=== PATIENT | female | born 1965 | race Caucasian/White ===

== ENCOUNTER → 2016-11-04 | Outpatient (CLI) | payer MEDICARE, MEDICAID ==
[~2016-11-04] MED LIST: CRAN500C2 PO; DITR1TAB PO; KURV0.15 PO; RAMI5CA PO; VITA500C10 PO; ZOCO20TA PO
== END ==
LOC: M LAB 11-01 17:02 → M LAB REF 10:35
PROVIDERS: ATTEND Nurse Practitioner Family
DX: N76.0 Acute vaginitis (principal); Z53.9 Procedure and treatment not carried out, unspecified reason

== ENCOUNTER → 2016-11-06 | Outpatient (REF) | payer MEDICARE, MEDICAID | LOC: M SFHCLERA 13:42 | PROVIDERS: ATTEND Nurse Practitioner Family | DX: N30.01 Acute cystitis with hematuria (principal) | CPT/HCPCS: 81002; 87086; G0463 ==

== ENCOUNTER → 2016-11-18 | Outpatient (REF) | payer MEDICARE, MEDICAID ==
[2016-11-18 18:54] LABS: CALCIUM OXALATE CRYSTALS SMALL
== END ==
LOC: M SMT 17:01 → M LAB REF 17:01
PROVIDERS: ATTEND Nurse Practitioner Women's Health
DX: N39.0 Urinary tract infection, site not specified (principal)
CPT/HCPCS: 51798; 81001; 87086; G0463

== ENCOUNTER → 2016-11-22 | Outpatient (CLI) | payer MEDICARE, MEDICAID ==
--- NOTE | 2016-11-22 13:58 | REP ---
RENAL AND BLADDER ULTRASOUND: Real-time sonographic evaluation of the kidneys and bladder are performed. The kidneys are normal in size and echotexture, right kidney measuring 10.5 x 5.8 x 4.7 cm and the left kidney 10.4 x 4.9 x 4.3 cm. There is no hydronephrosis bilaterally. No mass or calculus is visualized. The urinary bladder is mildly distended measuring 5.3 x 8.0 x 5.4 cm for a total volume of 120 mL. No bladder mass or calculus is seen. Bilateral ureteral jets are seen in the urinary bladder with Doppler color evaluation. There is mild postvoid residual of 19 mL following voiding. IMPRESSION: Essentially negative renal and bladder ultrasound. Signed by Blaze Ahn MD 11/22/2016 04:08 P
== END ==
LOC: M SMT 11:13
PROVIDERS: ATTEND Nurse Practitioner Women's Health
DX: N39.0 Urinary tract infection, site not specified (principal); R32 Unspecified urinary incontinence

== ENCOUNTER → 2016-12-02 | Outpatient (REF) | payer MEDICARE, MEDICAID | LOC: M SMT 18:33 | PROVIDERS: ATTEND Nurse Practitioner Women's Health | DX: N30.01 Acute cystitis with hematuria (principal) | CPT/HCPCS: 81001; 87086; G0463 ==

== ENCOUNTER 2017-01-21 10:50 | Day surgery (SDC) | payer MEDICARE, MEDICAID ==
[~2017-01-21] VITALS: Ht 152.4 cm; Wt 78.9 kg
[2017-01-21] MEDS ORDERED: NS 1,000 ML IV ONE (11:15)
[2017-01-21] MEDS ORDERED: PROPOFOL 200 MG/20 ML VIAL As Ordered ONE (12:25)
[2017-01-21] MEDS ORDERED: LIDOCAINE 2% INJ 100 MG/5 ML SDV (FOR ANES.) As Ordered ONE (12:26)
--- NOTE | 2017-01-21 12:39 | ROOR ---
Patient Name: Hermila Amor Procedure Date: 01/21/2017 12:05 PM Date of : 1965 Age: 51 Room: [facility] Gender: Female Note Status: Finalized Procedure: Total Colonoscopy to the Cecum + Cold Snare Polypectomy Indications: Screening for colorectal malignant neoplasm Providers: Ever Mcduffie MD Referring MD: STEVEN ROBLES MD Requesting Provider: Medicines: Monitored Anesthesia Care Complications: No immediate complications. Procedure: Pre-Anesthesia Assessment: - The heart rate, respiratory rate, oxygen saturations, blood pressure, adequacy of pulmonary ventilation, and response to care were monitored throughout the procedure. The Colonoscope was introduced through the anus and advanced to the cecum, identified by appendiceal orifice and ileocecal valve. The colonoscopy was performed without difficulty. The patient tolerated the procedure well. The quality of the bowel preparation was good. Findings: The perianal and digital rectal examinations were normal. Non-bleeding internal hemorrhoids were found during retroflexion. The hemorrhoids were small and Grade I (internal hemorrhoids that do not prolapse). Multiple small and large-mouthed diverticula were found in the recto-sigmoid colon, sigmoid colon and descending colon. A small polyp was found at 45 cm proximal to the anus. The polyp was sessile. The polyp was removed with a cold snare. Resection and retrieval were complete. A small polyp was found in the transverse colon. The polyp was sessile. The polyp was removed with a cold snare. Resection and retrieval were complete. The exam was otherwise without abnormality on direct and retroflexion views. Impression: - Non-bleeding internal hemorrhoids. - Diverticulosis in the recto-sigmoid colon, in the sigmoid colon and in the descending colon. - One small polyp at 45 cm proximal to the anus, removed with a cold snare. Resected and retrieved. - One small polyp in the transverse colon, removed with a cold snare. Resected and retrieved. - The examination was otherwise normal on direct and retroflexion views. - The exam was otherwise normal to the cecum. Recommendation: - Patient has a contact number available for emergencies. The signs and symptoms of potential delayed complications were discussed with the patient. Return to normal activities tomorrow. Written discharge instructions were provided to the patient. - High fiber diet. - Discharge patient to home. - Continue present medications. - Await pathology results. - Telephone GI clinic for pathology results in 1 week. - Check Portal Online for Path Results.([email or web address]) Ever Mcduffie MD Ever Mcduffie MD 01/21/2017 12:38:54 PM This report has been signed electronically. Number of Addenda: 0 Note Initiated On: 01/21/2017 12:05 PM Estimated Blood Loss: Estimated blood loss: none.
[2017-01-21 12:50] VITALS: BP 147/98
== END 2017-01-21 13:14 | disposition home or self-care (01) ==
LOC: M OPP 10:50
PROVIDERS: ATTEND Internal Medicine Gastroenterology
DX: Z12.11 Encounter for screening for malignant neoplasm of colon (principal); K64.0 First degree hemorrhoids; K57.30 Diverticulosis of large intestine without perforation or abscess without bleeding; D12.5 Benign neoplasm of sigmoid colon; D12.3 Benign neoplasm of transverse colon; I10 Essential (primary) hypertension; I89.0 Lymphedema, not elsewhere classified; F79 Unspecified intellectual disabilities; E78.00 Pure hypercholesterolemia, unspecified; Z79.899 Other long term (current) drug therapy

== ENCOUNTER → 2017-02-10 | Outpatient (REF) | payer MEDICARE, MEDICAID | LOC: M SMT 17:05 | PROVIDERS: ATTEND Specialist | DX: R35.1 Nocturia (principal) | CPT/HCPCS: 52000; 88108; G0463 ==

== ENCOUNTER → 2017-11-01 | Outpatient (CLI) | payer MEDICARE, MEDICAID | LOC: M RAD 17:05 | DX: Z12.31 Encounter for screening mammogram for malignant neoplasm of breast (principal); N63.11 Unspecified lump in the right breast, upper outer quadrant | CPT/HCPCS: 77067 ==

== ENCOUNTER → 2018-02-07 | Outpatient (REF) | payer MEDICARE, MEDICAID ==
[2018-02-07 21:36] LABS: AMORPHOUS SEDIMENT SMALL (NEGATIVE); APPEARANCE, URINE CLOUDY (CLEAR); BACTERIA, URINE AUTO 2+ (NEGATIVE); BILIRUBIN, URINE AUTO NEGATIVE (NEGATIVE); BLOOD, URINE BLOOD NEGATIVE (NEGATIVE); COLOR, URINE AMBER (YELLOW); GLUCOSE, URINE (UA) AUTO NEGATIVE (NEGATIVE); KETONE, URINE AUTO NEGATIVE (NEGATIVE); LEUKOCYTE ESTERASE, URINE AUTO 2+ (NEGATIVE); MUCUS, URINE SMALL (NEGATIVE); NITRITE, URINE AUTO POSITIVE (NEGATIVE); PROTEIN, URINE AUTO NEGATIVE (NEGATIVE); RBC, URINE AUTO 1 /HPF (0-3); SPECIFIC GRAVITY URINE AUTO 1.023 (1.002-1.035); SQUAMOUS EPITHELIAL CELL UR AU 38 /HPF (0-6); WBC, URINE AUTO 21 /HPF (0-3)
== END ==
LOC: M LAB REF 21:10
DX: N39.0 Urinary tract infection, site not specified (principal)
CPT/HCPCS: 81001

== ENCOUNTER → 2018-02-25 | Outpatient (REF) | payer MEDICARE, MEDICAID ==
[2018-02-25 15:44] LABS: AMORPHOUS SEDIMENT SMALL (NEGATIVE); APPEARANCE, URINE CLOUDY (CLEAR); BACTERIA, URINE AUTO 1+ (NEGATIVE); BILIRUBIN, URINE AUTO NEGATIVE (NEGATIVE); BLOOD, URINE BLOOD NEGATIVE (NEGATIVE); COLOR, URINE YELLOW (YELLOW); GLUCOSE, URINE (UA) AUTO NEGATIVE (NEGATIVE); KETONE, URINE AUTO NEGATIVE (NEGATIVE); LEUKOCYTE ESTERASE, URINE AUTO 2+ (NEGATIVE); MUCUS, URINE SMALL (NEGATIVE); NITRITE, URINE AUTO NEGATIVE (NEGATIVE); PROTEIN, URINE AUTO NEGATIVE (NEGATIVE); RBC, URINE AUTO 8 /HPF (0-3); SPECIFIC GRAVITY URINE AUTO 1.016 (1.002-1.035); SQUAMOUS EPITHELIAL CELL UR AU 21 /HPF (0-6); UROBILINOGEN, URINE AUTO 0.2 mg/dL (0.0-2.0); WBC, URINE AUTO 13 /HPF (0-3)
== END ==
LOC: M LAB REF 10:33
DX: N39.0 Urinary tract infection, site not specified (principal)
CPT/HCPCS: 81001

== ENCOUNTER → 2018-09-04 | Outpatient (REF) | payer MEDICARE, MEDICAID ==
[~2018-09-04] MED LIST changes: +RAMI1CAP24 PO; -RAMI5CA PO
== END ==
LOC: M LAB REF 11:19
PROVIDERS: ATTEND Physician Assistant Medical
DX: N39.0 Urinary tract infection, site not specified (principal)

== ENCOUNTER → 2018-11-27 | Outpatient (REF) | payer MEDICARE, MEDICAID ==
[2018-11-27 13:09] LABS: APPEARANCE, URINE MANUAL HAZY (CLEAR)
[2018-11-27 13:10] LABS: BILIRUBIN, URINE MANUAL NEGATIVE (NEGATIVE); BLOOD URINE MANUAL POSITIVE (NEGATIVE); COLOR, URINE MANUAL YELLOW (YELLOW); GLUCOSE, URINE (UA) MANUAL 1+(100 MG/DL) mg/dL (NEGATIVE); KETONE, URINE MANUAL 1+ mg/dL (NEGATIVE); LEUKOCYTE ESTERASE, URINE MAN POSITIVE (NEGATIVE); NITRITE, URINE MANUAL POSITIVE (NEGATIVE); PROTEIN, URINE MANUAL 2+ mg/dL (NEGATIVE); UROBILINOGEN, URINE MANUAL NORMAL (NORMAL)
[2018-11-27 13:11] LABS: RBC, URINE 20-30 /hpf (0-3); WBC, URINE 20-30 /hpf (0-3)
[2018-11-27 13:12] LABS: BACTERIA, URINE LARGE AMOUNT; SQUAMOUS EPITHELIAL CELL URINE NONE SEEN /hpf (SMALL AMT)
== END ==
LOC: M LAB REF 13:03
PROVIDERS: ATTEND Physician Assistant Medical
DX: N39.0 Urinary tract infection, site not specified (principal)

== ENCOUNTER → 2019-10-27 | Outpatient (REF) | payer MEDICARE, MEDICAID ==
[2019-11-22 14:06] LABS: APPEARANCE, URINE HAZY (CLEAR); BACTERIA, URINE AUTO NEGATIVE (NEGATIVE); BILIRUBIN, URINE AUTO NEGATIVE (NEGATIVE); BLOOD, URINE BLOOD NEGATIVE (NEGATIVE); COLOR, URINE YELLOW (YELLOW); GLUCOSE, URINE (UA) AUTO NEGATIVE (NEGATIVE); KETONE, URINE AUTO NEGATIVE (NEGATIVE); LEUKOCYTE ESTERASE, URINE AUTO 1+ (NEGATIVE); NITRITE, URINE AUTO NEGATIVE (NEGATIVE); PROTEIN, URINE AUTO NEGATIVE (NEGATIVE); RBC, URINE AUTO 4 /HPF (0-3); SPECIFIC GRAVITY URINE AUTO 1.017 (1.002-1.035); SQUAMOUS EPITHELIAL CELL UR AU 8 /HPF (0-6); UROBILINOGEN, URINE AUTO 0.2 mg/dL (0.0-2.0); WBC, URINE AUTO 7 /HPF (0-3)
== END ==
LOC: M LAB REF 07:22
PROVIDERS: ATTEND Physician Assistant Medical
DX: N39.0 Urinary tract infection, site not specified (principal)

== ENCOUNTER → 2019-11-21 | Outpatient (CLI) | payer MEDICARE, MEDICAID ==
--- NOTE | 2019-11-24 12:03 | REPMRS ---
Patient History The patient states she has not had a clinical breast exam in over a year. Patient is nulliparous. No known family history of cancer. Taking hormonal contraceptives. Digital Woman Screen Mammo: November 21, 2019 - Exam #: [id number] Bilateral CC and MLO view(s) were taken. Technologist: Cyndie Torres, Technologist Prior study comparison: November 01, 2017, bilateral digital mammo screening bilat, performed at [facility]. January 07, 2016, bilateral digital mammo screening bilat, performed at [facility]. December 03, 2014, bilateral digital mammo screening bilat, performed at [facility]. FINDINGS: There are scattered fibroglandular densities. The Volpara volumetric breast density category is:B. There has been no change in the appearance of the mammogram from the prior studies. There is a mild amount of scattered fibroglandular density which is fairly symmetric. There is no interval development of dominant mass, architectural distortion, or grouped microcalcification suggestive of malignancy. 3-D tomosynthesis shows no additional findings. Assessment: BI-RADS/ACR category 1 mammogram. Negative Mammogram. Recommendation Routine screening mammogram of both breasts in 1 year (for women over age 40). This patient's Lifetime Breast Cancer Risk is estimated at 11.4 %. This mammogram was interpreted with the aid of an FDA-approved computer-aided dectection system. Electronically Signed By: Brian Dominguez MD 11/24/19 [id number]
== END ==
LOC: M WHC 11:32
PROVIDERS: ATTEND Internal Medicine
DX: Z12.31 Encounter for screening mammogram for malignant neoplasm of breast (principal)

== ENCOUNTER → 2020-01-04 | Outpatient (REF) | payer MEDICARE, MEDICAID ==
[2020-01-04 13:03] LABS: APPEARANCE, URINE CLOUDY (CLEAR); BACTERIA, URINE AUTO 1+ (NEGATIVE); BILIRUBIN, URINE AUTO NEGATIVE (NEGATIVE); BLOOD, URINE BLOOD 2+ (NEGATIVE); COLOR, URINE YELLOW (YELLOW); GLUCOSE, URINE (UA) AUTO NEGATIVE (NEGATIVE); KETONE, URINE AUTO NEGATIVE (NEGATIVE); LEUKOCYTE ESTERASE, URINE AUTO 3+ (NEGATIVE); MUCUS, URINE SMALL (NEGATIVE); NITRITE, URINE AUTO NEGATIVE (NEGATIVE); PROTEIN, URINE AUTO NEGATIVE (NEGATIVE); RBC, URINE AUTO 18 /HPF (0-3); SPECIFIC GRAVITY URINE AUTO 1.018 (1.002-1.035); SQUAMOUS EPITHELIAL CELL UR AU 14 /HPF (0-6); UROBILINOGEN, URINE AUTO 0.2 mg/dL (0.0-2.0); WBC, URINE AUTO 9 /HPF (0-3)
== END ==
LOC: M LAB REF 11:24
PROVIDERS: ATTEND Physician Assistant
DX: N39.0 Urinary tract infection, site not specified (principal)

== ENCOUNTER → 2020-01-28 | Outpatient (REF) | payer MEDICARE, MEDICAID ==
[2020-01-28 12:48] LABS: APPEARANCE, URINE HAZY (CLEAR); BACTERIA, URINE AUTO 1+ (NEGATIVE); BILIRUBIN, URINE AUTO NEGATIVE (NEGATIVE); BLOOD, URINE BLOOD NEGATIVE (NEGATIVE); COLOR, URINE YELLOW (YELLOW); GLUCOSE, URINE (UA) AUTO NEGATIVE (NEGATIVE); KETONE, URINE AUTO NEGATIVE (NEGATIVE); LEUKOCYTE ESTERASE, URINE AUTO 2+ (NEGATIVE); MUCUS, URINE SMALL (NEGATIVE); NITRITE, URINE AUTO NEGATIVE (NEGATIVE); PROTEIN, URINE AUTO NEGATIVE (NEGATIVE); RBC, URINE AUTO 4 /HPF (0-3); SPECIFIC GRAVITY URINE AUTO 1.019 (1.002-1.035); SQUAMOUS EPITHELIAL CELL UR AU 7 /HPF (0-6); UROBILINOGEN, URINE AUTO 0.2 mg/dL (0.0-2.0); WBC, URINE AUTO 7 /HPF (0-3)
== END ==
LOC: M LAB REF 11:50
PROVIDERS: ATTEND Physician Assistant Medical
DX: N39.0 Urinary tract infection, site not specified (principal)

== ENCOUNTER → 2020-05-30 | Outpatient (REF) | payer MEDICARE, MEDICAID ==
[2020-05-30 12:47] LABS: AMORPHOUS SEDIMENT MODERATE (NEGATIVE); APPEARANCE, URINE TURBID (CLEAR); BACTERIA, URINE AUTO 2+ (NEGATIVE); BILIRUBIN, URINE AUTO NEGATIVE (NEGATIVE); BLOOD, URINE BLOOD 3+ (NEGATIVE); COLOR, URINE YELLOW (YELLOW); GLUCOSE, URINE (UA) AUTO NEGATIVE (NEGATIVE); KETONE, URINE AUTO NEGATIVE (NEGATIVE); LEUKOCYTE ESTERASE, URINE AUTO 3+ (NEGATIVE); MUCUS, URINE SMALL (NEGATIVE); NITRITE, URINE AUTO NEGATIVE (NEGATIVE); PROTEIN, URINE AUTO 1+ mg/dL (NEGATIVE); RBC, URINE AUTO TNTC /HPF (0-3); SPECIFIC GRAVITY URINE AUTO 1.017 (1.002-1.035); SQUAMOUS EPITHELIAL CELL UR AU 13 /HPF (0-6); UROBILINOGEN, URINE AUTO 0.2 mg/dL (0.0-2.0); WBC, URINE AUTO TNTC /HPF (0-3)
== END ==
LOC: M LAB REF 11:56
PROVIDERS: ATTEND Physician Assistant Medical
DX: N39.0 Urinary tract infection, site not specified (principal)

== ENCOUNTER 2020-08-28 16:41 | Inpatient (IN) | payer MEDICARE, MEDICAID ==
[~2020-08-28] VITALS: Ht 152.4 cm; Wt 72.0 kg
[2020-08-28] MEDS ORDERED: cefTRIAXone SOD 1 GM in D5W MINI-BAG PLUS 50 ML IV ONE (18:20)
--- NOTE | 2020-08-28 18:51 | REP ---
INDICATION: erythema, swelling, tender, worsening, r/o osteomyelitis COMPARISON: None. TECHNIQUE: AP, lateral, bilateral oblique views left foot. FINDINGS: Severe diffuse soft tissue swelling is appreciated. No subcutaneous emphysema or foreign body identified. The underlying osseous structures and joint spaces are grossly normal and without periosteal reaction or erosive changes to suggest osteomyelitis. No evidence for acute fracture or dislocation. IMPRESSION: Severe diffuse soft tissue swelling.. No evidence for osteomyelitis by radiographic evaluation. <Electronically signed by Rivas Hamm > 08/28/20 2261
[2020-08-28 18:56] LABS: HEMATOCRIT 43.1 % (36.0-47.0); HEMOGLOBIN 14.2 g/dl (12.0-15.5); MEAN CORPUSCULAR HEMOGLOBIN 29.2 pg (27.0-33.0); MEAN CORPUSCULAR HGB CONC 32.9 g/dl (32.0-36.5); MEAN CORPUSCULAR VOLUME 88.5 fl (80.0-96.0); PLATELET COUNT, AUTOMATED 172 10^3/uL (150-450); RED BLOOD COUNT 4.87 10^6/uL (4.00-5.40); WHITE BLOOD COUNT 15.3 10^3/uL (4.0-10.0)
[2020-08-28 19:23] LABS: LYMPHOCYTES 1 % (16-44); MONOCYTES 5 % (0-5); NEUTROPHILS 83 % (28-66); PLATELET ESTIMATE NORMAL (NORMAL)
[2020-08-28 19:24] LABS: ERYTHROCYTE SEDIMENTATION RATE 36 mm/hr (0-30)
[2020-08-28 19:34] LABS: C REACTIVE PROTEIN QUANTITATIV 30.9 MG/DL (0.00-0.30)
--- NOTE | 2020-08-28 19:41 | REP ---
INDICATION: erythema, swelling, tender, worsening, r/o osteomyelitis COMPARISON: None. TECHNIQUE: AP and lateral views left ankle. FINDINGS: Severe edema. No acute fracture or dislocation. No subcutaneous emphysema or foreign body. IMPRESSION: Severe edema. <Electronically signed by Rivas Hamm > 08/28/201936
--- NOTE | 2020-08-28 20:35 | REPVR ---
PROCEDURE INFORMATION: Exam: US Duplex Left Lower Extremity Veins, Limited Exam date and time: 08/28/2020 7:08 PM Age: 55 years old Clinical indication: Edema, localized and swelling (edema) of limb; Lower extremity, left; Additional info: Erythema, swelling, tender TECHNIQUE: Imaging protocol: Real-time Duplex ultrasound of the Left Lower Extremity with 2-D carr scale, color Doppler flow and spectral waveform analysis with image documentation. Limited exam focused on the left lower extremity veins. COMPARISON: No relevant prior studies available. FINDINGS: Left deep veins: Suboptimal visualization of the calf veins. The common femoral, femoral and popliteal veins are patent without thrombus. Normal compressibility, augmentation response and Doppler waveforms. Left superficial veins: Unremarkable. Saphenofemoral junction is patent without thrombus. Soft tissues: Subcutaneous edema in the calf. IMPRESSION: No sonographic evidence of deep vein thrombosis. Suboptimal visualization of the calf veins. Electronically signed by: Yaron Pederson On 08/28/2020 20:35:52 PM
[2020-08-28] MEDS ORDERED: OXYB-54 PO (20:59)
[2020-08-28] MEDS ORDERED: CRAN400C PO (20:59)
[2020-08-28] MEDS ORDERED: ASCO500T PO (20:59)
[2020-08-28] MEDS ORDERED: ACETAMINOPHEN TAB 650MG DOSE (2X325MG) PO PRN (22:05)
[2020-08-28] MEDS ORDERED: MOM 30ML SUSPENSION UDC PO PRN (22:05)
[2020-08-28] MEDS ORDERED: MAALOX 30 ML SUSP *UDC PO PRN (22:05)
[2020-08-28 22:11] LABS: RSV AMPLIFICATION NEGATIVE (NEGATIVE)
--- NOTE | 2020-08-28 22:17 | HPEPDOC ---
[facility] Medical History & Physical Date of Admission August 28, 2020 Date of Service: August 28, 2020 History and Physical CHIEF COMPLAINT: L leg pain and swelling HISTORY OF PRESENT ILLNESS: 55 very pleasant lady with a hx of cerebral palsy, chronic lower extremity edema L > R, congenital foot deformities, brought to ER by her brother (primary caregiver), for a 2 days hx of worsening edema, erythema and mild pain to palpation of the L leg. Patient denies any fevers, chills, SOB, chest pain, n/v/d. She does endorse pain on standing and walking; she is able to ambulate independently at home. In the ER, found to have low grade temp of 99.4, as well as leukocytosis, WBC 15.3. ESR 36. CRP 30. Venous duplex of the LLE did not show a DVT. No fracture seen on XR imaging. Patient was given a dose of ceftriaxone in the ER. Will be admitted to hospitalist service for management of acute non purulent LLE cellulitis. PAST MEDICAL HISTORY: Cerebral palsy HTN Chronic lymphedema bladder spasms hyperlipidemia PAST SURGICAL HISTORY: remote leg surgery in childhood. SOCIAL HISTORY: lives at home with brother, primary caregiver no hx smoking, etoh use, or illicit drug use mental delay FAMILY HISTORY: DM2 in mother. ALLERGIES: Please see below. REVIEW OF SYSTEMS: 10 point ROS was performed, relevant findings are noted in the HPI HOME MEDICATIONS: Please see below. PHYSICAL EXAMINATION: VITAL SIGNS: please see below GENERAL APPEARANCE: calm, pleasant, comfortable. HEENT: PERRLA, EOMI. CARDIOVASCULAR: RRR, normal S1, S2. LUNGS: CTAB, no wheeze, no rales. ABDOMEN: soft, non tender, non distended. MUSCULOSKELETAL: congenital foot deformity, club foot. EXTREMITIES: 2+ edema of LLE, erythema, mottled appearance, mild pain to palpation, no discrete ulceration. NEUROLOGICAL: CN 2-12. CP. No focal deficit. LABORATORY DATA: See below. IMAGING: Ankle XR (08/28/20): FINDINGS: Severe edema. No acute fracture or dislocation. No subcutaneous emphysema or foreign body. IMPRESSION: Severe edema. Foot XR (08/28/20): IMPRESSION: Severe diffuse soft tissue swelling.. No evidence for osteomyelitis by radiographic evaluation. LLE Venous Duplex (08/28/20): FINDINGS: Left deep veins: Suboptimal visualization of the calf veins. The common femoral, femoral and popliteal veins are patent without thrombus. Normal compressibility, augmentation response and Doppler waveforms. Left superficial veins: Unremarkable. Saphenofemoral junction is patent without thrombus. Soft tissues: Subcutaneous edema in the calf. IMPRESSION: No sonographic evidence of deep vein thrombosis. Suboptimal visualization of the calf veins MICROBIOLOGY: Please see below. ASSESSMENT: 55 very pleasant lady with a hx of cerebral palsy, chronic lower extremity edema L > R, congenital foot deformities, brought to ER by her brother (primary caregive), for a 2 days hx of worsening edema, erythema and mild pain to palpation of the L leg. Admitted for management of acute non purulent cellulitis of the L leg. . PLAN: LLE non purulent cellulitis - low grade temp, WBC 15. CRP 30 - no osteo myelitis on XR, no discrete ulceration - MRSA screen ordered - s/p 1g ceftriaxone in ER - start vancomycin - obtain set of blood cultures - daily labs, including CRP. - area of infection has been demarcated with surgical marker Cerebral palsy - has outpatient follow up - cared for brother - PT/OT ordered HTN - resume home ramipril Bladder spasms - resume home oxybutinin HLD - resume statin DVT ppx: heparin 5000 units SC q8h. Vital Signs Vital Signs Date Time Temp Pulse Resp B/P (MAP) Pulse Ox O2 Delivery O2 Flow Rate FiO2 08/28/20 17:56 08/28/20 16:43 99.4 113 20 99 Room Air Laboratory Data Labs 24H Laboratory Tests 2 08/28/20 18:34: Neutrophils (%) (Auto) , Nucleated Red Blood Cells % (auto) 0.0, Neutrophils 83H, Band Neutrophils 11, Lymphocytes (Manual) 1L, Monocytes (Manual) 5, Platelet Estimate NORMAL, Erythrocyte Sedimentation Rate 36H, C-Reactive Protein, Quantitative 30.90H 08/28/20 19:00: POC Glucose (Misc Panel) 106H, POC Sodium (Misc Panel) 134L, POC Potassium (Misc Panel) 3.5, POC Chloride (Misc Panel) 99, POC Total CO2 (Misc Panel) 24.0, POC Blood Urea Nitrogen (Misc Panel 16, POC Ionized Calcium (Misc Panel) 4.6, POC Creatinine (Misc Panel) 1.1, POC Hematocrit (Misc Panel) 43.0 08/28/20 21:20: CBC/BMP Laboratory Tests 08/28/20 18:34 Microbiology Microbiology 08/28/20 Blood Culture, Received Pending 08/28/20 Blood Culture, Received Pending Home Medications Scheduled Ascorbic Acid (Ascorbic Acid) 500 Mg Tablet, 500 MG PO DAILY Cranberry (Cranberry) 400 Mg Capsule, 400 MG PO QHS Levonorgestrel-Ethin Estradiol (Kurvelo Tablet) 1 Tab Tab, 1 TAB PO DAILY Oxybutynin Chloride (Oxybutynin Chloride ER) 5 Mg Tab.er.24, 5 MG PO QHS Ramipril (Ramipril) 5 Mg Cap, 5 MG PO DAILY Simvastatin (Zocor) 20 Mg Tab, 20 MG PO QHS Allergies Coded Allergies: No Known Allergies (Unverified , 01/20/17) JANET MORRISON MD August 28, 2020 22:17
[2020-08-28 22:33] LABS: CALCIUM LEVEL 8.1 MG/DL (8.5-10.1); CREATININE FOR GFR 1.04 MG/DL (0.55-1.30); GLOMERULAR FILTRATION RATE 58.8 (>51); POTASSIUM SERUM 3.8 MEQ/L (3.5-5.1)
[2020-08-28] MEDS ORDERED: VANCOMYCIN HCL 750 MG, VIAL MATE ADAPTER 1 EACH in NS 250 ML IV ONE (23:00)
[2020-08-28 23:49] VITALS: BP 130/78
[2020-08-29] MEDS ORDERED: VANCOMYCIN HCL 750 MG, VIAL MATE ADAPTER 1 EACH in NS 250 ML IV ONE ×3
[2020-08-29] MEDS: oxyBUTYnin *DITROPAN XL* 5 MG TABCR PO SCH ×2 (00:16→20:42)
[2020-08-29] MEDS: SIMVASTATIN 20 MG TAB PO SCH ×2 (00:16→20:42)
[2020-08-29 04:52] VITALS: BP 124/74
[2020-08-29] MEDS: HEPARIN SOD (PORCINE) 5000UNITS/ML 1ML VIAL/SYRINGE SC SCH ×3 (05:10→20:46)
[2020-08-29 06:55] LABS: HEMATOCRIT 37.3 % (36.0-47.0); HEMOGLOBIN 12.9 g/dl (12.0-15.5); MEAN CORPUSCULAR HEMOGLOBIN 29.6 pg (27.0-33.0); MEAN CORPUSCULAR HGB CONC 34.6 g/dl (32.0-36.5); MEAN CORPUSCULAR VOLUME 85.6 fl (80.0-96.0); PLATELET COUNT, AUTOMATED 165 10^3/uL (150-450); RED BLOOD COUNT 4.36 10^6/uL (4.00-5.40); WHITE BLOOD COUNT 13.3 10^3/uL (4.0-10.0)
[2020-08-29 07:11] LABS: ATYPICAL LYMPH 1 % (0-5); LYMPHOCYTES 2 % (16-44); MONOCYTES 7 % (0-5); NEUTROPHILS 86 % (28-66); PLATELET ESTIMATE NORMAL (NORMAL)
[2020-08-29 07:12] LABS: POIKILOCYTOSIS 1+
[2020-08-29 07:24] LABS: ALT/SGPT 17 U/L (12-78); BILIRUBIN,TOTAL 0.4 MG/DL (0.2-1.0); BLOOD UREA NITROGEN 15 MG/DL (7-18); CALCIUM LEVEL 7.9 MG/DL (8.5-10.1); CARBON DIOXIDE LEVEL 21 MEQ/L (21-32); CHLORIDE LEVEL 103 MEQ/L (98-107); CREATININE FOR GFR 0.92 MG/DL (0.55-1.30); GLOMERULAR FILTRATION RATE > 60.0 (>51); GLUCOSE, FASTING 89 MG/DL (70-100); MAGNESIUM LEVEL 1.9 MG/DL (1.8-2.4); POTASSIUM SERUM 3.6 MEQ/L (3.5-5.1); SODIUM LEVEL 134 MEQ/L (136-145); TOTAL PROTEIN 5.5 GM/DL (6.4-8.2)
[2020-08-29] MEDS: VANCOMYCIN HCL 1,000 MG, VIAL MATE ADAPTER 1 EACH in NS 250 ML IV SCH ×2 (08:26→20:42)
[2020-08-29 08:27] VITALS: BP 124/74
[2020-08-29] MEDS: ASCORBIC ACID 500 MG TAB PO SCH (08:27)
[2020-08-29] MEDS: DOCUSATE SODIUM 100MG CAPSULE PO SCH ×2 (08:27→20:42)
[2020-08-29] MEDS ORDERED: ramipriL 5 MG CAP PO SCH (09:00)
--- NOTE | 2020-08-29 11:01 | IPN ---
PROGRESS NOTE DATE: 08/29/2020 SUBJECTIVE: The patient complains of 5/10 pain in the left lower extremity. No fevers or chills overnight. No other new complaints. OBJECTIVE: VITAL SIGNS: Temperature 96.4, pulse 91, respiratory rate 18, blood pressure 124/74, 98% on room air. GENERAL: Generally awake, alert and oriented to person, place, and time. Answering questions appropriately. LUNGS: Clear to auscultation, no wheezing, rales or rhonchi. HEART: S1, S2 sinus rhythm. ABDOMEN: Obese, soft, nontender, nondistended. Positive bowel sounds. EXTREMITIES: Left lower extremity has significant erythema, induration without any crepitus and chronic lymphedema bilateral lower extremities, left greater than the right. LABORATORY DATA: Microbiology and imaging studies have been reviewed. ASSESSMENT AND PLAN: A 55-year-old female with a history of cerebral palsy, hypertension, chronic lymphedema left greater than right, bladder spasms, hyperlipidemia presents to the Emergency Room with worsening erythema, tenderness, and swelling of the left lower extremity. Venous Dopplers were negative for DVT. White count was 15,000. Sed rate of 36 and CRP of 30, admitted for a left lower extremity cellulitis. IMPRESSION: 1. Left lower extremity cellulitis on IV Vancomycin. MRSA screen has been ordered. No osteomyelitis on x-ray. Pt has significant pain, induration, but no crepitus. check ct tib/fib w contrast r/o necrotizing fasciitis. 2. Cerebral palsy. 3. Chronic hypertension controlled on Ramipril. 4. Bladder spasms, on Oxybutynin. 5. Hypertension, on statin. 6. DVT prophylaxis, Heparin subcutaneously. MTDD
[2020-08-29] MEDS ORDERED: ISOVUE-370 76% 100ML VIAL As Ordered ONE (12:04)
--- NOTE | 2020-08-29 13:01 | REP ---
INDICATION: LLE ERYTHEMA/EDEMA /CELLULITIS R/O NECROTIZING FASCIITIS. COMPARISON: Comparison radiographs of the left ankle August 28, 2020. TECHNIQUE: Helical scanning is acquired and 3 mm axial images are re-formatted. Coronal and sagittal MPR images are generated. We were unable to obtain telephone contrast consent. FINDINGS: Base Filler Operator view demonstrates moderate asymmetric swelling of the left calf and distal thigh. Axial CT images show diffuse subcutaneous and myofascial interface soft tissue swelling and edema. There are mildly dilated superficial vein varicosities in the calf. There is some skeletal muscle edema. No loculated or walled off fluid collection is appreciated. Cortical and medullary bone appears intact. No area of periosteal reaction or bony destructive lesion is seen. There are some chronic calcifications adjacent to the proximal fibular diaphysis. No acute bony abnormality is seen. No soft tissue gas is seen. IMPRESSION: Diffuse subcutaneous and myofascial edema consistent with history of cellulitis. No soft tissue gas is seen. No localized fluid collection is appreciated. Superficial vein varicosities are noted. <Electronically signed by Brian Dominguez > 08/29/20 [id number]
[2020-08-29 14:00] VITALS: BP 122/75
[2020-08-29 20:27] VITALS: BP 120/85
[2020-08-30] MEDS: HEPARIN SOD (PORCINE) 5000UNITS/ML 1ML VIAL/SYRINGE SC SCH ×3 (05:42→20:12)
[2020-08-30 05:59] VITALS: BP 104/56
[2020-08-30 07:16] LABS: BASO % 0.2 % (0.0-1.0); EOS % 0.2 % (0.0-3.0); HEMOGLOBIN 12.9 g/dl (12.0-15.5); LYMPH # 1.1 10^3/uL (1.5-5.0); LYMPH % 7.7 % (24.0-44.0); MEAN CORPUSCULAR HEMOGLOBIN 29.3 pg (27.0-33.0); MEAN CORPUSCULAR HGB CONC 33.9 g/dl (32.0-36.5); MEAN CORPUSCULAR VOLUME 86.4 fl (80.0-96.0); MONO % 10.8 % (2.0-8.0); NEUTROPHILS # 11.5 10^3/uL (1.5-8.5); NEUTROPHILS % 80.2 % (36.0-66.0); PLATELET COUNT, AUTOMATED 201 10^3/uL (150-450)
[2020-08-30 07:50] LABS: WHITE BLOOD COUNT 14.4 10^3/uL (4.0-10.0)
[2020-08-30 07:51] LABS: MONO # 1.6 10^3/uL (0.0-0.8)
[2020-08-30 07:55] LABS: ALBUMIN 1.9 GM/DL (3.2-5.2); BILIRUBIN,TOTAL 0.4 MG/DL (0.2-1.0); C REACTIVE PROTEIN QUANTITATIV 18.2 MG/DL (0.00-0.30); CALCIUM LEVEL 8.3 MG/DL (8.5-10.1); CREATININE FOR GFR 1.83 MG/DL (0.55-1.30); GLOMERULAR FILTRATION RATE 30.6 (>51); MAGNESIUM LEVEL 1.8 MG/DL (1.8-2.4); POTASSIUM SERUM 3.7 MEQ/L (3.5-5.1); TOTAL PROTEIN 5.2 GM/DL (6.4-8.2)
[2020-08-30] MEDS: ACETAMINOPHEN 500 MG TAB PO SCH ×4 (09:00→20:12)
[2020-08-30] MEDS: DOCUSATE SODIUM 100MG CAPSULE PO SCH ×2 (09:02→20:11)
[2020-08-30] MEDS: ASCORBIC ACID 500 MG TAB PO SCH (09:02)
[2020-08-30] MEDS: NS 1,000 ML IV SCH ×3 (09:02→20:51)
--- NOTE | 2020-08-30 11:53 | IPN ---
PROGRESS NOTE DATE: 08/30/2020 SUBJECTIVE: Patient has had no fever or chills. Decreasing erythema and induration of the left lower extremity has been noted. Patient still complains of 5/10 pain, worsens to 8/10 pain when she tries to ambulate or when the leg is palpated. No other issues overnight per nursing. Creatinine increased to 1.8 this morning. Vanco is currently being adjusted, on I.V. fluids today. PHYSICAL EXAMINATION: VITAL SIGNS: Temperature 96.7, pulse 92, respiratory rate 20, blood pressure 104/56, 98% on room air. GENERAL: Awake, alert, oriented to person, place and time. Answering questions appropriately. LUNGS: Clear to auscultation. No wheezes, rales or rhonchi. HEART: S1, S2, sinus rhythm. ABDOMEN: Soft, nontender, non-distended. Positive bowel sounds. EXTREMITIES: Chronic lymphedema. Left lower extremity has decreasing erythema, elevator tender. No crepitus noted. LABORATORY DATA/MICROBIOLOGY/IMAGING STUDIES: Reviewed. ASSESSMENT AND PLAN: This is a 55-year-old with cerebral palsy, chronic lymphedema, hypertension, bladder spasms, dyslipidemia, who was admitted to the Emergency Room due to worsening left lower extremity redness, tenderness and swelling. Dopplers were negative for DVT. CT of lower extremity had no necrotizing fasciitis or abscess formation. She was admitted for left lower extremity cellulitis and sepsis with white count of 15,000, tachycardic, rate of 106. CURRENT ISSUES: 1. Sepsis secondary to left lower extremity cellulitis. 2. Left lower extremity cellulitis. 3. Sinus tachycardia reactive. 4. Chronic lymphedema bilateral lower extremities. 5. Hypertension, controlled. 6. History of bladder spasms. 7. Dyslipidemia. 8. Acute kidney injury. PLAN: Patient is currently on intravenous Vancomycin, that is dosed by pharmacy. Her Ramipril has been discontinued due to acute kidney injury and she is currently on I.V. fluids times 2 liters. Would recheck basic metabolic panel this evening. Patient is placed on t.i.d. Acetaminophen, Oxycodone for breakthrough pain, and I.V. morphine for breakthrough pain so long as mean arterial pressure is greater than 70. MTDD
[2020-08-30 14:00] VITALS: BP 135/90
[2020-08-30 18:20] LABS: CALCIUM LEVEL 7.5 MG/DL (8.5-10.1); CREATININE FOR GFR 1.94 MG/DL (0.55-1.30); GLOMERULAR FILTRATION RATE 28.6 (>51); POTASSIUM SERUM 3.7 MEQ/L (3.5-5.1)
[2020-08-30 19:47] VITALS: BP 124/65
[2020-08-30] MEDS: SIMVASTATIN 20 MG TAB PO SCH (20:11)
[2020-08-30] MEDS: oxyBUTYnin *DITROPAN XL* 5 MG TABCR PO SCH (20:11)
[2020-08-31] MEDS: oxyCODONE 5MG TAB PO PRN ×4 (05:25→21:26)
[2020-08-31] MEDS: HEPARIN SOD (PORCINE) 5000UNITS/ML 1ML VIAL/SYRINGE SC SCH ×3 (05:25→21:25)
[2020-08-31 05:52] LABS: BASO % 0.3 % (0.0-1.0); EOS # 0.1 10^3/uL (0.0-0.5); EOS % 1.1 % (0.0-3.0); HEMATOCRIT 35.3 % (36.0-47.0); HEMOGLOBIN 11.4 g/dl (12.0-15.5); LYMPH # 1.2 10^3/uL (1.5-5.0); MEAN CORPUSCULAR HEMOGLOBIN 28.9 pg (27.0-33.0); MEAN CORPUSCULAR HGB CONC 32.3 g/dl (32.0-36.5); MEAN CORPUSCULAR VOLUME 89.4 fl (80.0-96.0); MONO # 1.1 10^3/uL (0.0-0.8); MONO % 8.4 % (2.0-8.0); NEUTROPHILS # 10.5 10^3/uL (1.5-8.5); NEUTROPHILS % 80.5 % (36.0-66.0); PLATELET COUNT, AUTOMATED 202 10^3/uL (150-450); RED BLOOD COUNT 3.95 10^6/uL (4.00-5.40); WHITE BLOOD COUNT 13.1 10^3/uL (4.0-10.0)
[2020-08-31 05:54] VITALS: BP 119/65
[2020-08-31 06:05] LABS: ALBUMIN 1.6 GM/DL (3.2-5.2); BILIRUBIN,TOTAL 0.3 MG/DL (0.2-1.0); C REACTIVE PROTEIN QUANTITATIV 14.5 MG/DL (0.00-0.30); CALCIUM LEVEL 7.7 MG/DL (8.5-10.1); CREATININE FOR GFR 2.07 MG/DL (0.55-1.30); GLOMERULAR FILTRATION RATE 26.6 (>51); MAGNESIUM LEVEL 1.7 MG/DL (1.8-2.4); POTASSIUM SERUM 3.5 MEQ/L (3.5-5.1); TOTAL PROTEIN 4.7 GM/DL (6.4-8.2)
[2020-08-31] MEDS: NS 1,000 ML IV SCH ×2 (06:24→17:17)
[2020-08-31] MEDS ORDERED: MAG SULF 1GM/100ML (MAG RUN) 1 GM in IV 1 EA IV ONE (06:50)
[2020-08-31] MEDS ORDERED: VANCOMYCIN HCL 1,000 MG, VIAL MATE ADAPTER 1 EACH in NS 250 ML IV SCH (08:00)
--- NOTE | 2020-08-31 08:28 | REP ---
INDICATION: arcadio, r/o hydro COMPARISON: 11/05/2013 TECHNIQUE: Real time carr scale ultrasound examination using curved array transducer. FINDINGS: The bilateral kidneys are normal in reniform shape and demonstrate mild increased parenchymal echogenicity raising the possibility of underlying medical renal disease. No hydronephrosis, nephrolithiasis, cystic or renal mass lesion identified. A miniscule amount of perinephric fluid adjacent to the left kidney cannot be excluded. Bladder is unremarkable and currently measures 8.6 x 8.9 x 4.4 cm.. Right kidney measures 12.3 x 4.9 x 3.9 cm. Left kidney measures 11.1 x 3.8 x 4.6 cm. IMPRESSION: 1. Increased parenchymal echotexture suggest the possibility of medical renal disease. 2. No hydronephrosis. <Electronically signed by Rivas Hamm > 08/31/20 [id number]
[2020-08-31] MEDS: DOCUSATE SODIUM 100MG CAPSULE PO SCH ×2 (09:13→21:26)
[2020-08-31] MEDS: ASCORBIC ACID 500 MG TAB PO SCH (09:13)
[2020-08-31] MEDS: ACETAMINOPHEN 500 MG TAB PO SCH ×4 (09:14→21:27)
[2020-08-31] MEDS: DOXYCYCLINE HYCLATE 100MG TABLET PO SCH ×2 (09:14→21:26)
[2020-08-31] MEDS: AUGMENTIN 500 MG TAB PO SCH ×2 (09:18→21:26)
--- NOTE | 2020-08-31 11:13 | REP ---
INDICATION: sob r/o edema COMPARISON: None. TECHNIQUE: Portable AP view of the chest FINDINGS: The mediastinum and cardiac silhouette are within normal limits for portable technique. The lung chavez are clear without acute consolidation, effusion, or pneumothorax. Skeletal structures are intact. IMPRESSION: No acute cardiopulmonary process appreciated. <Electronically signed by Rivas Hamm > 08/31/20 [id number]
--- NOTE | 2020-08-31 13:04 | IPN ---
PROGRESS NOTE DATE: 08/31/2020 SUBJECTIVE: Patient still complains of 5/10 pain in left lower extremity, especially when she tries to ambulate or when someone touches it. No fever or chills overnight. Patient developed acute kidney injury, was given 4 liters of intravenous (IV) fluid yesterday, but denies any shortness of breath this morning. PHYSICAL EXAMINATION: Temperature 97.6, pulse 81, respiratory rate 20, blood pressure 119/65, 97% on room air. GENERAL: Patient is awake, alert, oriented to person, place and time, pleasantly answering questions without any distress. HEENT: No jugular venous distention (JVD), thyromegaly or cervical lymphadenopathy. LUNGS: Diminished, fine crackles. EXTREMITIES: Lower extremities have chronic lymphedema. Decreasing redness on the left lower extremity. No induration or crepitus. LABORATORY DATA: Laboratory data has been reviewed, notable for creatinine of 2.07 and white count of 13,000. ASSESSMENT: This is a 55-year-old with history of cerebral palsy, bladder spasms, hypertension, dyslipidemia, admitted to the emergency room with left lower extremity cellulitis. Negative for deep venous thrombosis (DVT) on Doppler. CT of lower extremity has no abscess or necrotizing fascitis. CURRENT ISSUES: 1. Vancomycin-induced acute kidney injury. 2. Sepsis due to left lower extremity cellulitis. 3. Left lower extremity cellulitis. 4. Chronic lymphedema lower extremities. 5. Hypertension. 6. Dyslipidemia. 7. History of bladder spasms. PLAN: Despite intravenous (IV) fluids, patient remains with worsening renal dysfunction. She came in with normal kidney function, currently at stage IV. We are hydrating her. She does not have fluid overload, hyperkalemia or metabolic acidosis as yet. Will continue with IV fluids for now. Discontinued vancomycin yesterday. Currently on doxycycline and amoxicillin. Check a chest x-ray. Rule out fluid overload due to IV fluids given yesterday. Pain control.
[2020-08-31 14:12] VITALS: BP 142/86
[2020-08-31] MEDS: oxyBUTYnin *DITROPAN XL* 5 MG TABCR PO SCH (21:26)
[2020-08-31] MEDS: SIMVASTATIN 20 MG TAB PO SCH (21:27)
[2020-08-31 22:00] VITALS: BP 132/84
[2020-09-01] MEDS: NS 1,000 ML IV SCH ×2 (05:29→13:16)
[2020-09-01] MEDS: HEPARIN SOD (PORCINE) 5000UNITS/ML 1ML VIAL/SYRINGE SC SCH ×3 (05:30→21:03)
[2020-09-01 06:08] VITALS: BP 134/89
[2020-09-01 06:41] LABS: BASO # 0.1 10^3/uL (0.0-0.2); BASO % 0.4 % (0.0-1.0); EOS # 0.1 10^3/uL (0.0-0.5); HEMATOCRIT 36.2 % (36.0-47.0); MEAN CORPUSCULAR HEMOGLOBIN 29.5 pg (27.0-33.0); MEAN CORPUSCULAR HGB CONC 33.1 g/dl (32.0-36.5); MEAN CORPUSCULAR VOLUME 88.9 fl (80.0-96.0); MONO # 0.8 10^3/uL (0.0-0.8); MONO % 6.2 % (2.0-8.0); NEUTROPHILS # 10.4 10^3/uL (1.5-8.5); NEUTROPHILS % 83.4 % (36.0-66.0); PLATELET COUNT, AUTOMATED 238 10^3/uL (150-450); RED BLOOD COUNT 4.07 10^6/uL (4.00-5.40); WHITE BLOOD COUNT 12.5 10^3/uL (4.0-10.0)
[2020-09-01 07:08] LABS: ALBUMIN 1.6 GM/DL (3.2-5.2); BILIRUBIN,TOTAL 0.3 MG/DL (0.2-1.0); C REACTIVE PROTEIN QUANTITATIV 12.8 MG/DL (0.00-0.30); CREATININE FOR GFR 1.77 MG/DL (0.55-1.30); GLOMERULAR FILTRATION RATE 31.8 (>51); MAGNESIUM LEVEL 1.9 MG/DL (1.8-2.4); POTASSIUM SERUM 3.7 MEQ/L (3.5-5.1); TOTAL PROTEIN 5.5 GM/DL (6.4-8.2)
[2020-09-01] MEDS ORDERED: PROMETHAZINE INJ 25 MG/ML VIAL (J2550) IV ONE (08:30)
[2020-09-01] MEDS: DOCUSATE SODIUM 100MG CAPSULE PO SCH ×2 (08:40→21:04)
[2020-09-01] MEDS: PROMETHAZINE INJ 25 MG/ML VIAL (J2550) IV PRN (08:40)
[2020-09-01] MEDS: AUGMENTIN 500 MG TAB PO SCH ×2 (08:41→21:03)
[2020-09-01] MEDS: ACETAMINOPHEN 500 MG TAB PO SCH ×4 (08:41→21:04)
[2020-09-01] MEDS: DOXYCYCLINE HYCLATE 100MG TABLET PO SCH ×2 (08:41→21:04)
[2020-09-01] MEDS: ASCORBIC ACID 500 MG TAB PO SCH (08:41)
[2020-09-01] MEDS: oxyCODONE 5MG TAB PO PRN ×4 (08:41→21:04)
[2020-09-01] MEDS ORDERED: METOCLOPRAMIDE INJ 10MG/2ML VIAL (J2765 PER 1) IV ONE (09:15)
--- NOTE | 2020-09-01 11:14 | IPN ---
PROGRESS NOTE DATE: 09/01/2020 SUBJECTIVE: Patient complains of nausea this morning, currently on Augmentin and Doxycycline for left lower extremity cellulitis which is improving. The patient says she has no pain at the moment when she is not moving her left leg and no one is touching it. No fevers or chills overnight. No other issues per nursing aside from nausea this morning. She denies any abdominal pain, constipation, diarrhea or fever, chills overnight. PHYSICAL EXAMINATION: VITAL SIGNS: Temperature 98, pulse 81, respiratory rate 18, blood pressure 134/89, 98% on room air. GENERAL: Awake, alert, oriented to person, very pleasant and no respiratory distress. HEENT: Dry mucous membranes moist. LUNGS: Clear to auscultation, no wheezes, rhonchi or rales. HEART: S1, S2, sinus rhythm. ABDOMEN: Obese, soft, nontender, non-distended, positive bowel sounds. EXTREMITIES: Chronic lymphedema, erythema on the left lower extremity. Swelling is decreasing. It is less erythematous. No crepitus. LABORATORY DATA: CBC and metabolic panel have been reviewed. Notable for decreased white count to 12 from 13, creatinine is 1.77 on IV fluids. Input of 2230 and output 800 per nursing, unable to obtain accurate input and output due to urine incontinence. ASSESSMENT/PLAN: This is a 55-year-old female with history of cerebral palsy, bladder spasms, hypertension, chronic urine incontinence, dyslipidemia, admitted to the emergency room with left lower extremity cellulitis in the setting of chronic lymphedema. The patient had CT of the lower extremity which showed no abscess or necrotizing fascitis. Dopplers were negative for DVT. CURRENT ISSUES: 1. Sepsis secondary to left lower extremity cellulitis. Previously on IV Vanco but developed Vanco-induced acute kidney injury and currently on Augmentin and Doxycycline to complete a full seven day course of antibiotics, improving but not back to baseline. 2. Vancomycin-induced acute kidney injury. Creatinine is 1.77 from 2.07 yesterday on IV fluids, unable to measure strict I's and O's as the patient had urine incontinence. Avoid nephrotoxins, renally-dose all other medications. 3. Chronic lymphedema bilateral lower extremities. Outpatient follow up and referral to Dr. Cerrato. The patient will need Joss bandages and compression stockings once the infection has resolved. 4. Hypertension, controlled. 5. Dyslipidemia, chronic. 6. History of bladder spasms, stable, no acute complaints. 7. Cerebral palsy.
[2020-09-01 14:00] VITALS: BP 125/71
--- NOTE | 2020-09-01 19:19 | REP ---
INDICATION: sob\ COMPARISON: 08/31/2020 TECHNIQUE: Portable AP view of the chest FINDINGS: The mediastinum and cardiac silhouette are stable and within normal limits for portable technique. The lung chavez are clear without acute consolidation, effusion, or pneumothorax. Skeletal structures are intact. IMPRESSION: No focal consolidation or effusion. <Electronically signed by Rivas Hamm > 09/01/20 [id number]
[2020-09-01 19:41] LABS: CALCIUM LEVEL 7.4 MG/DL (8.5-10.1); CREATININE FOR GFR 1.68 MG/DL (0.55-1.30); GLOMERULAR FILTRATION RATE 33.8 (>51); POTASSIUM SERUM 4.1 MEQ/L (3.5-5.1)
[2020-09-01] MEDS: SIMVASTATIN 20 MG TAB PO SCH (21:04)
[2020-09-01] MEDS: oxyBUTYnin *DITROPAN XL* 5 MG TABCR PO SCH (21:04)
[2020-09-01 22:00] VITALS: BP 122/69
[2020-09-02] MEDS: NS 1,000 ML IV SCH ×2 (05:54→09:53)
[2020-09-02] MEDS: HEPARIN SOD (PORCINE) 5000UNITS/ML 1ML VIAL/SYRINGE SC SCH ×3 (05:54→21:00)
[2020-09-02 06:06] VITALS: BP 144/87
[2020-09-02 06:54] LABS: BASO % 0.4 % (0.0-1.0); EOS # 0.2 10^3/uL (0.0-0.5); EOS % 2.5 % (0.0-3.0); HEMATOCRIT 35.7 % (36.0-47.0); HEMOGLOBIN 11.8 g/dl (12.0-15.5); LYMPH # 1.7 10^3/uL (1.5-5.0); LYMPH % 17.9 % (24.0-44.0); MEAN CORPUSCULAR HEMOGLOBIN 29.5 pg (27.0-33.0); MEAN CORPUSCULAR HGB CONC 33.1 g/dl (32.0-36.5); MEAN CORPUSCULAR VOLUME 89.3 fl (80.0-96.0); MONO # 0.9 10^3/uL (0.0-0.8); MONO % 9.3 % (2.0-8.0); NEUTROPHILS # 6.7 10^3/uL (1.5-8.5); NEUTROPHILS % 68.6 % (36.0-66.0); PLATELET COUNT, AUTOMATED 278 10^3/uL (150-450); WHITE BLOOD COUNT 9.7 10^3/uL (4.0-10.0)
[2020-09-02 07:18] LABS: ALBUMIN 1.5 GM/DL (3.2-5.2); BILIRUBIN,TOTAL 0.3 MG/DL (0.2-1.0); CALCIUM LEVEL 7.8 MG/DL (8.5-10.1); CREATININE FOR GFR 1.58 MG/DL (0.55-1.30); GLOMERULAR FILTRATION RATE 36.3 (>51); MAGNESIUM LEVEL 1.4 MG/DL (1.8-2.4); POTASSIUM SERUM 3.7 MEQ/L (3.5-5.1); TOTAL PROTEIN 5.1 GM/DL (6.4-8.2)
[2020-09-02] MEDS: DOCUSATE SODIUM 100MG CAPSULE PO SCH ×2 (09:47→21:00)
[2020-09-02] MEDS: DOXYCYCLINE HYCLATE 100MG TABLET PO SCH ×2 (09:47→21:00)
[2020-09-02] MEDS: AUGMENTIN 500 MG TAB PO SCH (09:47)
[2020-09-02] MEDS: ACETAMINOPHEN 500 MG TAB PO SCH ×4 (09:47→21:00)
[2020-09-02] MEDS: ASCORBIC ACID 500 MG TAB PO SCH (09:47)
--- NOTE | 2020-09-02 09:48 | IPNPDOC ---
Text Note Date of Service The patient was seen on 09/02/20. NOTE Subjective: Patient is a 55-year-old female with a PMHx of Cerebral palsy, Bladder spasms, HTN, Chronic urinary incontinence, DLP, and Lymphedema who presented to the emergency room with left leg redness, warmth and swelling in the emergency room, patient received a duplex ultrasound that was negative for DVT. Patient was admitted to the hospital service for further evaluation and treatment of cellulitis. Patient was seen and examined at the bedside. Patient reports that her leg is doing slightly better. She denies any nausea, vomiting, chest pain, shortness breath, palpitations. Reports that her left leg has improvement of redness, warmth, still reports some pain and discomfort. Objective: Vitals (See below) General: Lying in bed, no acute distress, appears comfortable, Awake / Alert, Oriented to person HEENT: NC, AT CVS: +S1S2 Lungs: Fair air entry b/l, -w/r/r Abdomen: Soft, ND, NT, +BSx4 Extremities: Chronic lymphedema noted bilaterally, - Calf tenderness Skin: Left leg with area of erythema and warmth regressed from demarcation lines Imaging: Ankle XR 08/28: Severe edema. Foot XR 08/28: Severe diffuse soft tissue swelling.. No evidence for osteomyelitis by radiographic evaluation. Vascular US 08/28: No sonographic evidence of deep vein thrombosis. Suboptimal visualization of the calf veins. Extremity CT 08/29: Diffuse subcutaneous and myofascial edema consistent with history of cellulitis. No soft tissue gas is seen. No localized fluid collection is appreciated. Superficial vein varicosities are noted. Renal US 08/31: 1. Increased parenchymal echotexture suggest the possibility of medical renal disease. 2. No hydronephrosis. CXR 08/31: No acute cardiopulmonary process appreciated. CXR 09/01: No focal consolidation or effusion. Assessment and plan: Sepsis - 2/2 LLE cellulitis, no evidence of necrotizing fascitis or abscess, no evidence of DVT - Clinically area of warmth, erythema has improved. Patient still reports some tenderness - Physical reveals regression from area of demarcation - Patient remains afebrile - Resolution of leukocytosis - Blood cultures 08/28: No growth at 72 hours - c/w Doxycycline and Augmentin; s/p Vancomycin (Antibiotic day #5) BENNY - possibly 2/2 intra-renal etiology 2/2 vancomycin - Cr appears to be improving - Imaging noted above - Will avoid nephrotoxic medications - c/w IV fluid hydration; will reduce rate Chronic lymphedema of bilateral LE - c/w dressing changes as ordered - Will have outpatient referral to advanced wound care, Dr. Cerrato HTN - Blood pressure well controlled - s/p Ramipril (re: BENNY) DLP - c/w Simvastatin History of bladder spasms - c/w Oxybutynin Cerebral palsy - Patient has been cleared by physical therapy DVT prophylaxis - c/w Heparin Disposition: - Anticipate discharge home tomorrow VS,Julia, I+O VS, Julia, I+O Laboratory Tests 09/01/20 18:59 09/02/20 06:02 Vital Signs Date Time Temp Pulse Resp B/P (MAP) Pulse Ox O2 Delivery O2 Flow Rate FiO2 09/02/20 06:06 98.5 82 18 144/87 (106) 99 Room Air I&O- Last 24 Hours up to 6 AM 09/02/20 06:00 Intake Total 3310 ml Output Total 1 ml Balance 3309 ml OSIRIS MARCOS MD Sep 02, 2020 09:48
[2020-09-02] MEDS: MAG SULF 1GM/100ML (MAG RUN) 1 GM in IV 1 EA IV SCH ×2 (10:21→12:08)
[2020-09-02 14:00] VITALS: BP 142/85
[2020-09-02] MEDS: PROMETHAZINE INJ 25 MG/ML VIAL (J2550) IV PRN (17:06)
[2020-09-02] MEDS: SIMVASTATIN 20 MG TAB PO SCH (21:00)
[2020-09-02] MEDS: AUGMENTIN 875 MG TAB PO SCH (21:00)
[2020-09-02] MEDS: oxyBUTYnin *DITROPAN XL* 5 MG TABCR PO SCH (21:01)
[2020-09-02 22:00] VITALS: BP 140/85
[2020-09-03] MEDS: NS 1,000 ML IV SCH (01:09)
[2020-09-03 06:00] VITALS: BP 127/83
[2020-09-03 06:20] LABS: BASO % 0.2 % (0.0-1.0); EOS # 0.2 10^3/uL (0.0-0.5); EOS % 2.6 % (0.0-3.0); HEMATOCRIT 35.3 % (36.0-47.0); HEMOGLOBIN 11.4 g/dl (12.0-15.5); LYMPH # 1.4 10^3/uL (1.5-5.0); LYMPH % 15.9 % (24.0-44.0); MEAN CORPUSCULAR HEMOGLOBIN 28.9 pg (27.0-33.0); MEAN CORPUSCULAR HGB CONC 32.3 g/dl (32.0-36.5); MEAN CORPUSCULAR VOLUME 89.6 fl (80.0-96.0); MONO # 0.8 10^3/uL (0.0-0.8); MONO % 8.7 % (2.0-8.0); NEUTROPHILS # 6.4 10^3/uL (1.5-8.5); NEUTROPHILS % 71.3 % (36.0-66.0); PLATELET COUNT, AUTOMATED 317 10^3/uL (150-450); RED BLOOD COUNT 3.94 10^6/uL (4.00-5.40); WHITE BLOOD COUNT 8.9 10^3/uL (4.0-10.0)
[2020-09-03] MEDS: HEPARIN SOD (PORCINE) 5000UNITS/ML 1ML VIAL/SYRINGE SC SCH ×2 (06:44→12:44)
[2020-09-03 06:47] LABS: ALBUMIN 1.6 GM/DL (3.2-5.2); BILIRUBIN,TOTAL 0.3 MG/DL (0.2-1.0); CALCIUM LEVEL 7.7 MG/DL (8.5-10.1); CREATININE FOR GFR 1.37 MG/DL (0.55-1.30); GLOMERULAR FILTRATION RATE 42.8 (>51); MAGNESIUM LEVEL 2.1 MG/DL (1.8-2.4); POTASSIUM SERUM 4.2 MEQ/L (3.5-5.1); TOTAL PROTEIN 4.8 GM/DL (6.4-8.2)
[2020-09-03] MEDS: AUGMENTIN 875 MG TAB PO SCH (08:12)
[2020-09-03] MEDS: DOCUSATE SODIUM 100MG CAPSULE PO SCH (08:12)
[2020-09-03] MEDS: ASCORBIC ACID 500 MG TAB PO SCH (08:12)
[2020-09-03] MEDS: ACETAMINOPHEN 500 MG TAB PO SCH ×2 (08:13→12:44)
[2020-09-03] MEDS: DOXYCYCLINE HYCLATE 100MG TABLET PO SCH (08:14)
[2020-09-03] MEDS ORDERED: AMOX875T2 PO (08:27)
[2020-09-03] MEDS ORDERED: DOXY100T PO (08:27)
[2020-09-03 14:00] VITALS: BP 160/96
--- NOTE | 2020-09-03 14:51 | DS.PDOC ---
Discharge Summary General Date of Admission August 28, 2020 at 22:01 Date of Discharge 09/03/2020 Discharge Summary PROCEDURES PERFORMED DURING STAY: [None]. ADMITTING DIAGNOSES / DISCHARGE DIAGNOSES: Sepsis - 2/2 LLE cellulitis, no evidence of necrotizing fascitis or abscess, no evidence of DVT BENNY - possibly 2/2 intra-renal etiology 2/2 vancomycin Chronic lymphedema of bilateral LE HTN DLP History of bladder spasms Cerebral palsy DVT prophylaxis COMPLICATIONS/CHIEF COMPLAINT: Left leg cellulitis HISTORY OF PRESENT ILLNESS: Patient is a 55-year-old female with a PMHx of Cerebral palsy, Bladder spasms, HTN, Chronic urinary incontinence, DLP, and Lymphedema who presented to the emergency room with left leg redness, warmth and swelling in the emergency room, patient received a duplex ultrasound that was negative for DVT. Patient was admitted to the hospital service for further evaluation and treatment of cellulitis. HOSPITAL COURSE: Sepsis - 2/2 LLE cellulitis, no evidence of necrotizing fascitis or abscess, no evidence of DVT - Clinically patient appears to be improving - Physical with improvement of erythema, warmth and tenderness - Patient remains afebrile - s/p Leukocytosis - Blood cultures 08/28: No growth at 5 days - c/w Doxycycline and Augmentin; s/p Vancomycin (Antibiotic day #6) - will continue antibiotics as an outpatient for completion of course BENNY - possibly 2/2 intra-renal etiology 2/2 vancomycin - Cr continues to improve - Imaging noted above - Will avoid nephrotoxic medications - Will DC IV fluids - Encourage increased oral hydration Chronic lymphedema of bilateral LE - c/w dressing changes as ordered - Will have outpatient referral to advanced wound care, Dr. Cerrato HTN - Blood pressure well controlled - s/p Ramipril (re: BENNY) DLP - c/w Simvastatin History of bladder spasms - c/w Oxybutynin Cerebral palsy - Patient has been cleared by physical therapy DVT prophylaxis - c/w Heparin DISCHARGE MEDICATIONS: Please see below. ALLERGIES: Please see below. PHYSICAL EXAMINATION ON DISCHARGE: Vitals (See below) General: Lying in bed, patient appears to be comfortable, is awake and alert, HEENT: NC, AT CVS: +S1S2 Lungs: Fair air entry b/l, no wheezing, rhonchi or rales Abdomen: Soft without any distention or tenderness Extremities: Again, bilateral lower extremities reveal chronic lymphedema Skin: Left leg with significant improvement of erythema, warmth and tenderness LABORATORY DATA: Please see below. IMAGING: Ankle XR 08/28: Severe edema. Foot XR 08/28: Severe diffuse soft tissue swelling.. No evidence for osteomyelitis by radiographic evaluation. Vascular US 08/28: No sonographic evidence of deep vein thrombosis. Suboptimal visualization of the calf veins. Extremity CT 08/29: Diffuse subcutaneous and myofascial edema consistent with history of cellulitis. No soft tissue gas is seen. No localized fluid collection is appreciated. Superficial vein varicosities are noted. Renal US 08/31: 1. Increased parenchymal echotexture suggest the possibility of medical renal disease. 2. No hydronephrosis. CXR 08/31: No acute cardiopulmonary process appreciated. CXR 09/01: No focal consolidation or effusion. ACTIVITY: [As tolerated]. DISCHARGE PLAN: Follow-up with primary care provider within the next 7 days Remain compliant with treatment plan and medications Return to the ER if you experience any problems DISPOSITION: Home with services DISCHARGE CONDITION: [Stable]. TIME SPENT ON DISCHARGE: 35 minutes. Vital Signs/I&Os Vital Signs Date Time Temp Pulse Resp B/P (MAP) Pulse Ox O2 Delivery O2 Flow Rate FiO2 09/03/20 14:00 97.2 79 15 160/96 (117) 99 Room Air I&O- Last 24 Hours up to 6 AM 09/03/20 06:00 Intake Total 3100 ml Output Total 200 ml Balance 2900 ml Laboratory Data Labs 24H Laboratory Tests 2 09/03/20 05:41: Immature Granulocyte % (Auto) 1.3, Neutrophils (%) (Auto) 71.3H, Lymphocytes (%) (Auto) 15.9L, Monocytes (%) (Auto) 8.7H, Eosinophils (%) (Auto) 2.6, Basophils (%) (Auto) 0.2, Neutrophils # (Auto) 6.4, Lymphocytes # (Auto) 1.4L, Monocytes # (Auto) 0.8, Eosinophils # (Auto) 0.2, Basophils # (Auto) 0.0, Nucleated Red Blood Cells % (auto) 0.0, Anion Gap 7L, Glomerular Filtration Rate 42.8L, Calcium Level 7.7L, Magnesium Level 2.1, Total Bilirubin 0.3, Aspartate Amino Transf (AST/SGOT) 43H, Alanine Aminotransferase (ALT/SGPT) 36, Alkaline Phosphat ase 70, Total Protein 4.8L, Albumin 1.6L, Albumin/Globulin Ratio 0.5L CBC/BMP Laboratory Tests 09/03/20 05:41 Microbiology Microbiology 08/28/20 Blood Culture - Final, Complete NO GROWTH AFTER 5 DAYS 08/28/20 Blood Culture - Final, Complete NO GROWTH AFTER 5 DAYS Discharge Medications Scheduled Amoxicillin/Potassium Clav (Amox-Clav 875-125 mg Tablet) 1 Each Tablet, 875 MG PO BID Ascorbic Acid (Ascorbic Acid) 500 Mg Tablet, 500 MG PO DAILY, (Reported) Cranberry (Cranberry) 400 Mg Capsule, 400 MG PO QHS, (Reported) Doxycycline Hyclate (Doxycycline Hyclate) 100 Mg Tablet, 100 MG PO BID Levonorgestrel-Ethin Estradiol (Kurvelo Tablet) 1 Tab Tab, 1 TAB PO DAILY, ( Reported) Oxybutynin Chloride (Oxybutynin Chloride ER) 5 Mg Tab.er.24, 5 MG PO QHS, (Reported) Simvastatin (Zocor) 20 Mg Tab, 20 MG PO QHS, (Reported) Allergies Coded Allergies: No Known Allergies (Unverified , 01/20/17) OSIRIS MARCOS MD Sep 03, 2020 14:51
== END 2020-09-03 16:05 | disposition home or self-care (01) | DRG 872 ==
LOC: M ED 16:41 → M ED INP 22:01 → ENRESERV 22:45 → M MS5PR 23:21
PROVIDERS: ADMIT Family Medicine; ATTEND Internal Medicine
DX: A41.9 Sepsis, unspecified organism (principal); L03.116 Cellulitis of left lower limb; N17.9 Acute kidney failure, unspecified; I10 Essential (primary) hypertension; G80.9 Cerebral palsy, unspecified; I89.0 Lymphedema, not elsewhere classified; N32.89 Other specified disorders of bladder; E78.5 Hyperlipidemia, unspecified; R32 Unspecified urinary incontinence; D72.829 Elevated white blood cell count, unspecified; Z79.899 Other long term (current) drug therapy; Z20.822 Contact with and (suspected) exposure to COVID-19; R00.0 Tachycardia, unspecified

== ENCOUNTER → 2021-03-20 | Outpatient (CLI) | payer MEDICARE, MEDICAID ==
[~2021-03-20] MED LIST changes: +AMOX875T2 PO; +ASCO500T PO; +CRAN400C PO; +DOXY100T PO; +OXYB-54 PO
== END ==
LOC: M WHC 10:47
PROVIDERS: ATTEND Internal Medicine
DX: Z12.31 Encounter for screening mammogram for malignant neoplasm of breast (principal); R92.1 Mammographic calcification found on diagnostic imaging of breast

== ENCOUNTER → 2021-12-30 | Outpatient (CLI) | payer MEDICARE, MEDICAID ==
[~2021-12-30] MED LIST changes: +SIMV-253 PO; +SIMV20TA22 PO; -ZOCO20TA PO
== END ==
LOC: M LABSMTC 11:21
PROVIDERS: ATTEND Anesthesiology
DX: Z01.818 Encounter for other preprocedural examination (principal); Z11.52 Encounter for screening for COVID-19

== ENCOUNTER 2022-01-04 06:38 | Day surgery (SDC) | payer MEDICARE, MEDICAID ==
[~2022-01-04] VITALS: Ht 149.9 cm; Wt 74.4 kg
[~2022-01-04 06:38] MED LIST changes: +NS 1,000 ML IV ONE
[2022-01-04] MEDS ORDERED: LIDOCAINE 2% 100MG/5ML SDV (FOR ANES.) As Ordered ONE (06:59)
[2022-01-04] MEDS ORDERED: propofoL 200 MG/20 ML VIAL As Ordered ONE ×2 (06:59→08:31)
[2022-01-04] MEDS ORDERED: GLYCOPYRROLATE INJ 0.2 MG/ML 2 ML VIAL As Ordered ONE (08:25)
[2022-01-04 09:03] VITALS: BP 138/99
== END 2022-01-04 09:18 | disposition home or self-care (01) ==
LOC: M OPP 06:38
PROVIDERS: ATTEND Internal Medicine Gastroenterology
DX: Z12.11 Encounter for screening for malignant neoplasm of colon (principal); Z86.010 Personal history of colon polyps; D12.6 Benign neoplasm of colon, unspecified; K64.0 First degree hemorrhoids; K57.30 Diverticulosis of large intestine without perforation or abscess without bleeding; Z79.02 Long term (current) use of antithrombotics/antiplatelets; Z79.3 Long term (current) use of hormonal contraceptives; Z79.899 Other long term (current) drug therapy; I10 Essential (primary) hypertension; E78.5 Hyperlipidemia, unspecified; G80.9 Cerebral palsy, unspecified; I89.0 Lymphedema, not elsewhere classified

== ENCOUNTER → 2022-03-12 | Outpatient (CLI) | payer MEDICARE, MEDICAID ==
[~2022-03-12] MED LIST changes: -NS 1,000 ML IV ONE
== END ==
LOC: M WHC 08:19
PROVIDERS: ATTEND Internal Medicine
DX: Z12.31 Encounter for screening mammogram for malignant neoplasm of breast (principal)

== ENCOUNTER 2022-07-02 09:25 | Observation (INO) | payer MEDICARE, MEDICAID ==
[~2022-07-02] VITALS: Ht 134.6 cm; Wt 76.4 kg
[2022-07-02] MEDS: ramipriL 5 MG CAP PO SCH (09:00)
[2022-07-02 10:20] LABS: BASO % 0.6 % (0.0-1.0); EOS # 0.1 10^3/uL (0.0-0.5); EOS % 1.4 % (0.0-3.0); HEMATOCRIT 45.1 % (36.0-47.0); HEMOGLOBIN 14.5 g/dl (12.0-15.5); LYMPH # 1.1 10^3/uL (1.5-5.0); LYMPH % 22.2 % (24.0-44.0); MEAN CORPUSCULAR HEMOGLOBIN 29.5 pg (27.0-33.0); MEAN CORPUSCULAR HGB CONC 32.2 g/dl (32.0-36.5); MEAN CORPUSCULAR VOLUME 91.7 fl (80.0-96.0); MONO # 0.5 10^3/uL (0.0-0.8); MONO % 9.5 % (2.0-8.0); NEUTROPHILS # 3.2 10^3/uL (1.5-8.5); NEUTROPHILS % 66.1 % (36.0-66.0); PLATELET COUNT, AUTOMATED 215 10^3/uL (150-450); RED BLOOD COUNT 4.92 10^6/uL (4.00-5.40); WHITE BLOOD COUNT 4.8 10^3/uL (4.0-10.0)
[2022-07-02 10:47] LABS: CALCIUM LEVEL 9.2 MG/DL (8.5-10.1); CREATININE FOR GFR 1.02 MG/DL (0.55-1.30); GLOMERULAR FILTRATION RATE 59.7 (>51); POTASSIUM SERUM 4.9 MMOL/L (3.5-5.1)
[2022-07-02 10:50] LABS: THYROID STIMULATING HORMONE 2.72 uIU/ML (0.55-4.78)
[2022-07-02 10:57] LABS: RSV AMPLIFICATION NEGATIVE (NEGATIVE)
[2022-07-02] MEDS ORDERED: HOME MED LIST COMPLETE! XX SCH (14:30)
[2022-07-02 16:24] VITALS: BP 127/71
[2022-07-02] MEDS: ASCORBIC ACID 500 MG TAB PO SCH (18:07)
[2022-07-02 18:11] VITALS: BP_SYST 131; BP_SYST 135; BP_SYST 149; BP_DIAS 76; BP_DIAS 78; BP_DIAS 96
[2022-07-02] MEDS: ACETAMINOPHEN TAB 650MG DOSE (2X325MG) PO PRN (20:12)
[2022-07-02 20:39] VITALS: BP 130/89
[2022-07-02] MEDS ORDERED: SIMVASTATIN 20 MG TAB PO SCH (21:00)
[2022-07-02] MEDS ORDERED: oxyBUTYnin *DITROPAN XL* 5 MG TABCR PO SCH (21:00)
[2022-07-02] MEDS ORDERED: ENOXAPARIN 40MG/0.4ML SYRINGE (J1650 PER 10MG) SC SCH (21:00)
[2022-07-03 06:00] VITALS: BP 132/78
[2022-07-03 06:19] LABS: HEMATOCRIT 40.4 % (36.0-47.0); HEMOGLOBIN 13.4 g/dl (12.0-15.5); MEAN CORPUSCULAR HEMOGLOBIN 30.5 pg (27.0-33.0); MEAN CORPUSCULAR HGB CONC 33.2 g/dl (32.0-36.5); MEAN CORPUSCULAR VOLUME 91.8 fl (80.0-96.0); PLATELET COUNT, AUTOMATED 194 10^3/uL (150-450); WHITE BLOOD COUNT 4.6 10^3/uL (4.0-10.0)
[2022-07-03 06:25] VITALS: BP_SYST 124; BP_SYST 130; BP_SYST 138; BP_DIAS 72; BP_DIAS 74; BP_DIAS 78
[2022-07-03 06:43] LABS: ALBUMIN 2.8 G/DL (3.2-5.2); ALKALINE PHOSPHATASE 60 U/L (46-116); ALT/SGPT 17 U/L (7.0-40); AST/SGOT 20 U/L (<34); BILIRUBIN,TOTAL 0.6 MG/DL (0.3-1.2); BLOOD UREA NITROGEN 16 MG/DL (9-23); CALCIUM LEVEL 8.3 MG/DL (8.5-10.1); CARBON DIOXIDE LEVEL 26 MMOL/L (20-31); CHLORIDE LEVEL 108 MMOL/L (98-107); CREATININE FOR GFR 0.78 MG/DL (0.55-1.30); GLOMERULAR FILTRATION RATE > 60.0 (>51); GLUCOSE, FASTING 96 MG/DL (60-100); MAGNESIUM LEVEL 1.7 MG/DL (1.8-2.4); POTASSIUM SERUM 4.5 MMOL/L (3.5-5.1); SODIUM LEVEL 140 MMOL/L (136-145); TOTAL PROTEIN 5.9 G/DL (5.7-8.2)
[2022-07-03] MEDS ORDERED: MAGNESIUM OXIDE 400MG TAB (MAG-OX) PO ONE (09:00)
[2022-07-03] MEDS: ASCORBIC ACID 500 MG TAB PO SCH (09:10)
[2022-07-03] MEDS: ACETAMINOPHEN TAB 650MG DOSE (2X325MG) PO PRN (09:12)
[2022-07-03 10:41] VITALS: BP 134/85
[2022-07-03] MEDS: ramipriL 5 MG CAP PO SCH (10:41)
== END 2022-07-03 14:06 | disposition home or self-care (01) ==
LOC: M ED 09:25 → EDBD 09:25 → M ED INP 14:23 → ENRESERV 15:00 → M MSPAV 16:25
PROVIDERS: ADMIT Family Medicine; ATTEND Family Medicine
DX: R55 Syncope and collapse (principal); G80.9 Cerebral palsy, unspecified; I10 Essential (primary) hypertension; E78.5 Hyperlipidemia, unspecified; N32.89 Other specified disorders of bladder; I89.0 Lymphedema, not elsewhere classified; Z79.899 Other long term (current) drug therapy
CPT/HCPCS: 36415; 70450; 71045; 80048; 80053; 81001; 83735; 84443; 84484; 85025; 85027; 87631; 93005; 93041; 93306; 94760; 96372; 99285; G0378; J1650

== ENCOUNTER → 2023-03-04 | Outpatient (REF) | payer MEDICARE, MEDICAID ==
[2023-03-04 21:48] LABS: APPEARANCE, URINE CLOUDY (CLEAR); BACTERIA, URINE AUTO NEGATIVE (NEGATIVE); BILIRUBIN, URINE AUTO NEGATIVE (NEGATIVE); BLOOD, URINE BLOOD NEGATIVE (NEGATIVE); CALCIUM OXALATE CRYSTALS LARGE; COLOR, URINE YELLOW (YELLOW); GLUCOSE, URINE (UA) AUTO NEGATIVE (NEGATIVE); KETONE, URINE AUTO NEGATIVE (NEGATIVE); LEUKOCYTE ESTERASE, URINE AUTO 1+ (NEGATIVE); MUCUS, URINE SMALL (NEGATIVE); NITRITE, URINE AUTO NEGATIVE (NEGATIVE); PROTEIN, URINE AUTO NEGATIVE (NEGATIVE); RBC, URINE AUTO 1 /HPF (0-3); SPECIFIC GRAVITY URINE AUTO 1.026 (1.002-1.035); SQUAMOUS EPITHELIAL CELL UR AU 24 /HPF (0-6); UROBILINOGEN, URINE AUTO 0.2 mg/dL (0.0-2.0); WBC, URINE AUTO 3 /HPF (0-3)
== END ==
LOC: M LAB REF 21:02
PROVIDERS: ATTEND Physician Assistant
DX: N39.0 Urinary tract infection, site not specified (principal)

== ENCOUNTER → 2023-04-07 | Outpatient (CLI) | payer MEDICARE, MEDICAID | LOC: M WHC 10:10 | PROVIDERS: ATTEND Internal Medicine | DX: Z12.31 Encounter for screening mammogram for malignant neoplasm of breast (principal) ==

== ENCOUNTER → 2023-04-16 | Outpatient (REF) | payer MEDICARE, MEDICAID ==
[2023-04-16 18:43] LABS: APPEARANCE, URINE HAZY (CLEAR); BACTERIA, URINE AUTO NEGATIVE (NEGATIVE); BILIRUBIN, URINE AUTO NEGATIVE (NEGATIVE); BLOOD, URINE BLOOD NEGATIVE (NEGATIVE); COLOR, URINE YELLOW (YELLOW); GLUCOSE, URINE (UA) AUTO NEGATIVE (NEGATIVE); KETONE, URINE AUTO NEGATIVE (NEGATIVE); LEUKOCYTE ESTERASE, URINE AUTO 2+ (NEGATIVE); NITRITE, URINE AUTO NEGATIVE (NEGATIVE); PROTEIN, URINE AUTO NEGATIVE (NEGATIVE); RBC, URINE AUTO 7 /HPF (0-3); SPECIFIC GRAVITY URINE AUTO 1.019 (1.002-1.035); SQUAMOUS EPITHELIAL CELL UR AU 9 /HPF (0-6); UROBILINOGEN, URINE AUTO 0.2 mg/dL (0.0-2.0); WBC, URINE AUTO 8 /HPF (0-3)
== END ==
LOC: M LAB REF 17:07
PROVIDERS: ATTEND Physician Assistant
DX: A49.1 Streptococcal infection, unspecified site (principal)

== ENCOUNTER → 2023-05-20 | Outpatient (REF) | payer MEDICARE, MEDICAID ==
[2023-05-20 17:07] LABS: APPEARANCE, URINE HAZY (CLEAR); BACTERIA, URINE AUTO NEGATIVE (NEGATIVE); BILIRUBIN, URINE AUTO NEGATIVE (NEGATIVE); BLOOD, URINE BLOOD NEGATIVE (NEGATIVE); COLOR, URINE YELLOW (YELLOW); GLUCOSE, URINE (UA) AUTO NEGATIVE (NEGATIVE); KETONE, URINE AUTO NEGATIVE (NEGATIVE); LEUKOCYTE ESTERASE, URINE AUTO 3+ (NEGATIVE); NITRITE, URINE AUTO NEGATIVE (NEGATIVE); PROTEIN, URINE AUTO NEGATIVE (NEGATIVE); RBC, URINE AUTO 2 /HPF (0-3); SPECIFIC GRAVITY URINE AUTO 1.024 (1.002-1.035); SQUAMOUS EPITHELIAL CELL UR AU 19 /HPF (0-6); UROBILINOGEN, URINE AUTO 0.2 mg/dL (0.0-2.0); WBC, URINE AUTO 12 /HPF (0-3)
== END ==
LOC: M LAB REF 16:29
PROVIDERS: ATTEND Physician Assistant
DX: N39.0 Urinary tract infection, site not specified (principal)

== ENCOUNTER → 2023-06-28 | Outpatient (REF) | payer MEDICARE, MEDICAID ==
[2023-06-28 21:43] LABS: APPEARANCE, URINE CLOUDY (CLEAR); BACTERIA, URINE AUTO NEGATIVE (NEGATIVE); BILIRUBIN, URINE AUTO NEGATIVE (NEGATIVE); BLOOD, URINE BLOOD NEGATIVE (NEGATIVE); CALCIUM OXALATE CRYSTALS LARGE; COLOR, URINE YELLOW (YELLOW); GLUCOSE, URINE (UA) AUTO NEGATIVE (NEGATIVE); KETONE, URINE AUTO NEGATIVE (NEGATIVE); LEUKOCYTE ESTERASE, URINE AUTO TRACE (NEGATIVE); MUCUS, URINE SMALL (NEGATIVE); NITRITE, URINE AUTO NEGATIVE (NEGATIVE); PROTEIN, URINE AUTO NEGATIVE (NEGATIVE); RBC, URINE AUTO 6 /HPF (0-3); SPECIFIC GRAVITY URINE AUTO 1.025 (1.002-1.035); SQUAMOUS EPITHELIAL CELL UR AU 11 /HPF (0-6); UROBILINOGEN, URINE AUTO 0.2 mg/dL (0.0-2.0); WBC, URINE AUTO 3 /HPF (0-3)
== END ==
LOC: M LAB REF 21:09
PROVIDERS: ATTEND Physician Assistant Medical
DX: N39.0 Urinary tract infection, site not specified (principal)

== ENCOUNTER → 2023-07-19 | Outpatient (REF) | payer MEDICARE, MEDICAID ==
[2023-07-19 17:48] LABS: APPEARANCE, URINE HAZY (CLEAR); BACTERIA, URINE AUTO NEGATIVE (NEGATIVE); BILIRUBIN, URINE AUTO NEGATIVE (NEGATIVE); BLOOD, URINE BLOOD NEGATIVE (NEGATIVE); COLOR, URINE YELLOW (YELLOW); GLUCOSE, URINE (UA) AUTO NEGATIVE (NEGATIVE); KETONE, URINE AUTO NEGATIVE (NEGATIVE); LEUKOCYTE ESTERASE, URINE AUTO 1+ (NEGATIVE); MUCUS, URINE SMALL (NEGATIVE); NITRITE, URINE AUTO NEGATIVE (NEGATIVE); PROTEIN, URINE AUTO NEGATIVE (NEGATIVE); RBC, URINE AUTO 1 /HPF (0-3); SPECIFIC GRAVITY URINE AUTO 1.021 (1.002-1.035); SQUAMOUS EPITHELIAL CELL UR AU 20 /HPF (0-6); UROBILINOGEN, URINE AUTO 0.2 mg/dL (0.0-2.0); WBC, URINE AUTO 8 /HPF (0-3)
== END ==
LOC: M LAB REF 16:21
PROVIDERS: ATTEND Physician Assistant Medical
DX: N39.0 Urinary tract infection, site not specified (principal)

== ENCOUNTER → 2023-09-02 | Outpatient (REF) | payer MEDICARE, MEDICAID ==
[~2023-09-02] MED LIST changes: -CRAN400C PO; +CRANBERRY400 MG PO; -RAMI1CAP24 PO; +RAMI5CAP60 PO
[2023-09-02 16:57] LABS: APPEARANCE, URINE HAZY (CLEAR); BACTERIA, URINE AUTO NEGATIVE (NEGATIVE); BILIRUBIN, URINE AUTO NEGATIVE (NEGATIVE); BLOOD, URINE BLOOD NEGATIVE (NEGATIVE); CALCIUM OXALATE CRYSTALS MODERATE; COLOR, URINE YELLOW (YELLOW); GLUCOSE, URINE (UA) AUTO NEGATIVE (NEGATIVE); KETONE, URINE AUTO NEGATIVE (NEGATIVE); LEUKOCYTE ESTERASE, URINE AUTO NEGATIVE (NEGATIVE); MUCUS, URINE SMALL (NEGATIVE); NITRITE, URINE AUTO NEGATIVE (NEGATIVE); PROTEIN, URINE AUTO 1+ mg/dL (NEGATIVE); RBC, URINE AUTO 7 /HPF (0-3); SPECIFIC GRAVITY URINE AUTO 1.032 (1.002-1.035); SQUAMOUS EPITHELIAL CELL UR AU 8 /HPF (0-6); WBC, URINE AUTO 1 /HPF (0-3)
== END ==
LOC: M LAB REF 16:17
PROVIDERS: ATTEND Physician Assistant Medical
DX: N39.0 Urinary tract infection, site not specified (principal)

== ENCOUNTER → 2023-09-28 | Outpatient (REF) | payer MEDICARE ==
[2023-09-28 21:02] LABS: APPEARANCE, URINE HAZY (CLEAR); BACTERIA, URINE AUTO 1+ (NEGATIVE); BILIRUBIN, URINE AUTO NEGATIVE (NEGATIVE); BLOOD, URINE BLOOD NEGATIVE (NEGATIVE); CALCIUM OXALATE CRYSTALS SMALL; COLOR, URINE AMBER (YELLOW); GLUCOSE, URINE (UA) AUTO NEGATIVE (NEGATIVE); KETONE, URINE AUTO NEGATIVE (NEGATIVE); LEUKOCYTE ESTERASE, URINE AUTO TRACE (NEGATIVE); MUCUS, URINE SMALL (NEGATIVE); NITRITE, URINE AUTO NEGATIVE (NEGATIVE); PROTEIN, URINE AUTO 1+ mg/dL (NEGATIVE); RBC, URINE AUTO 8 /HPF (0-3); SPECIFIC GRAVITY URINE AUTO 1.024 (1.002-1.035); SQUAMOUS EPITHELIAL CELL UR AU 4 /HPF (0-6); WBC, URINE AUTO 5 /HPF (0-3)
== END ==
LOC: M LAB REF 20:48
PROVIDERS: ATTEND Physician Assistant Medical
DX: N39.0 Urinary tract infection, site not specified (principal)

== ENCOUNTER → 2023-11-17 | Outpatient (REF) | payer MEDICARE ==
[2023-11-17 16:53] LABS: APPEARANCE, URINE CLOUDY (CLEAR); BACTERIA, URINE AUTO 1+ (NEGATIVE); BILIRUBIN, URINE AUTO NEGATIVE (NEGATIVE); BLOOD, URINE BLOOD 3+ (NEGATIVE); CALCIUM OXALATE CRYSTALS SMALL; COLOR, URINE YELLOW (YELLOW); GLUCOSE, URINE (UA) AUTO NEGATIVE (NEGATIVE); KETONE, URINE AUTO NEGATIVE (NEGATIVE); LEUKOCYTE ESTERASE, URINE AUTO 1+ (NEGATIVE); MUCUS, URINE SMALL (NEGATIVE); NITRITE, URINE AUTO NEGATIVE (NEGATIVE); PROTEIN, URINE AUTO 1+ mg/dL (NEGATIVE); RBC, URINE AUTO 58 /HPF (0-3); SPECIFIC GRAVITY URINE AUTO 1.026 (1.002-1.035); SQUAMOUS EPITHELIAL CELL UR AU 24 /HPF (0-6); WBC, URINE AUTO 11 /HPF (0-3)
== END ==
LOC: M LAB REF 16:21
PROVIDERS: ATTEND Physician Assistant
DX: N39.0 Urinary tract infection, site not specified (principal)

== ENCOUNTER → 2024-04-16 | Outpatient (CLI) | payer MEDICARE, MEDICAID | LOC: M WHC 09:51 | PROVIDERS: ATTEND Internal Medicine | DX: Z12.31 Encounter for screening mammogram for malignant neoplasm of breast (principal); Z80.3 Family history of malignant neoplasm of breast; R92.323 Mammographic fibroglandular density, bilateral breasts; N63.21 Unspecified lump in the left breast, upper outer quadrant ==

== ENCOUNTER → 2024-04-24 | Outpatient (CLI) | payer MEDICARE, MEDICAID | LOC: M WHC 11:44 | PROVIDERS: ATTEND Internal Medicine | DX: Z12.31 Encounter for screening mammogram for malignant neoplasm of breast (principal); N60.12 Diffuse cystic mastopathy of left breast ==

== ENCOUNTER → 2024-08-01 | Outpatient (CLI) | payer MEDICARE, MEDICAID ==
[2024-08-01 14:36] LABS: BASO % 0.3 % (0.0-1.0); EOS % 0.5 % (0.0-3.0); HEMATOCRIT 43.2 % (36.0-47.0); HEMOGLOBIN 13.6 g/dl (12.0-15.5); LYMPH # 1.8 10^3/uL (1.5-5.0); LYMPH % 21.1 % (24.0-44.0); MEAN CORPUSCULAR HEMOGLOBIN 29.3 pg (27.0-33.0); MEAN CORPUSCULAR HGB CONC 31.5 g/dl (32.0-36.5); MEAN CORPUSCULAR VOLUME 93.1 fl (80.0-96.0); MONO # 0.8 10^3/uL (0.0-0.8); MONO % 8.7 % (2.0-8.0); NEUTROPHILS % 69.2 % (36.0-66.0); PLATELET COUNT, AUTOMATED 243 10^3/uL (150-450); RED BLOOD COUNT 4.64 10^6/uL (4.00-5.40)
[2024-08-01 15:01] LABS: ALBUMIN 3.3 G/DL (3.2-5.2); BILIRUBIN,TOTAL 0.7 MG/DL (0.3-1.2); CALCIUM LEVEL 9.9 MG/DL (8.5-10.1); CHOLESTEROL RISK RATIO 2.76 (<5); CREATININE FOR GFR 0.88 MG/DL (0.55-1.30); GLOMERULAR FILTRATION RATE 76.1 (>51); LDL CHOLESTEROL 87.8 MG/DL (<100); POTASSIUM SERUM 4.6 MMOL/L (3.5-5.1); TOTAL PROTEIN 6.8 G/DL (5.7-8.2)
[2024-08-02 06:46] LABS: WHITE BLOOD COUNT 8.6 10^3/uL (4.0-10.0)
== END ==
LOC: M WUC 11:52
PROVIDERS: ATTEND Internal Medicine
DX: E78.5 Hyperlipidemia, unspecified (principal)

== ENCOUNTER → 2024-11-15 | Outpatient (CLI) | payer MEDICARE, MEDICAID | LOC: M WHC 09:39 | PROVIDERS: ATTEND Internal Medicine | DX: N63.21 Unspecified lump in the left breast, upper outer quadrant (principal); R92.322 Mammographic fibroglandular density, left breast | CPT/HCPCS: 77065; G0279 ==